=== PATIENT | male | born 1990 | race Caucasian/White ===

== ENCOUNTER 2018-06-11 22:19 | Emergency (ER) | payer SELFPAY ==
[2018-06-11] MEDS ORDERED: LIDO:MAALOX 1:1 20 ML SINGLE DOSE. (22:48)
[2018-06-11] MEDS ORDERED: KETOROLAC 30 MG/ML INJ. (22:48)
[2018-06-11] MEDS: KETOROLAC 30 MG/ML INJ. IV (22:51)
[2018-06-11] MEDS: LIDO:MAALOX 1:1 20 ML SINGLE DOSE. SWSW (22:51)
[2018-06-11] MEDS: FAMOTIDINE 20 MG TABLET. PO (22:51)
[2018-06-11 23:06] LABS: BASO # 0.1 x10^3/uL (0.0-0.2); BASO % 1 % (0-3); EOS # 0.2 x10^3/uL (0.0-0.7); EOS % 2 % (0-3); HEMATOCRIT 41.2 % (39.0-53.0); LYMPH # 3.1 x10^3/uL (1.0-4.8); LYMPH % 30 % (24-48); MEAN CORPUSCULAR HEMOGLOBIN 29 pg (25-35); MEAN CORPUSCULAR HGB CONC 34 g/dL (31-37); MEAN CORPUSCULAR VOLUME 85 fL (79-100); MONO # 0.9 x10^3/uL (0.0-1.1); MONO % 9 % (0-9); NEUT # 6.2 x10^3uL (1.8-7.7); NEUT % 59 % (31-73); PLATELET COUNT 214 x10^3/uL (140-400); RED BLOOD COUNT 4.86 x10^6/uL (4.30-5.70); RED CELL DISTRIBUTION WIDTH 15.1 % (11.5-14.5); WHITE BLOOD COUNT 10.5 x10^3/uL (4.0-11.0)
[2018-06-11 23:12] LABS: ADD MAN DIFF? YES
[2018-06-11 23:13] LABS: ANION GAP 8 (6-14); BLOOD UREA NITROGEN 12 mg/dL (8-26); BUN/CREATININE RATIO 15 (6-20); CALCIUM 8.3 mg/dL (8.5-10.1); CARBON DIOXIDE 30 mmol/L (21-32); CHLORIDE 104 mmol/L (98-107); CREATININE 0.8 mg/dL (0.7-1.3); GFR 116.9; GLUCOSE 99 mg/dL (70-99); SODIUM 142 mmol/L (136-145)
[2018-06-11 23:19] LABS: ALBUMIN 3.8 g/dL (3.4-5.0); ALBUMIN/GLOBULIN RATIO 1.2 (1.0-1.7); ALK PHOS 118 U/L (46-116); ALT (SGPT) 26 U/L (16-63); AST (SGOT) 55 U/L (15-37); LIPASE 139 U/L (73-393); TOTAL BILIRUBIN 0.2 mg/dL (0.2-1.0); TOTAL PROTEIN 6.9 g/dL (6.4-8.2)
[2018-06-11 23:32] LABS: BILIRUBIN,URINE NEGATIVE (NEG); CLARITY,URINE CLEAR; COLOR,URINE YELLOW; GLUCOSE,URINE NEGATIVE (NEG); NITRITE,URINE NEGATIVE (NEG); PH,URINE 7.5; PROTEIN,URINE NEGATIVE (NEG-TRACE); UROBILINOGEN,URINE 0.2 mg/dL (0.2 mg/dL)
[2018-06-11 23:41] LABS: BACTERIA,URINE 0 /HPF (0-FEW); RBC,URINE OCC /HPF (0-2); SQUAMOUS EPITHELIAL CELL,UR OCC /LPF; WBC,URINE 0 /HPF (0-4)
[2018-06-11 23:49] LABS: % BANDS 1 % (0-9); % EOS 3 % (0-5); % LYMPHS 36 % (24-48); % MONOS 10 % (0-10); % SEGS 50 % (35-66); PLT ESTIMATE ADEQUATE (ADEQUATE); TOXIC GRANULATION SLIGHT
== END 2018-06-12 00:28 | disposition home or self-care (01) ==
LOC: ER 06-12 00:28
DX: R10.9 Unspecified abdominal pain (principal); G89.29 Other chronic pain; Z88.1 Allergy status to other antibiotic agents
CPT/HCPCS: 36415; 80053; 81001; 83690; 85007; 85025; 96374; 99284; J1885